=== PATIENT | female | born 2000 ===

== ENCOUNTER 2025-02-05 12:38 | Inpatient (IN) | payer MEDICAID ==
[2025-02-05] MEDS ORDERED: Ondansetron 4 MG/2 ML SDV IVPUSH PRN (14:12)
[2025-02-05 14:37] LABS: BASOPHILS ABSOLUTE AUTO 0.0 K/mm3 (0.0-0.2); BASOPHILS PERCENT AUTO 0.2 % (0.0-1.0); EOSINOPHILS ABSOLUTE AUTO 0.0 K/mm3 (0.0-0.4); EOSINOPHILS PERCENT AUTO 0.2 % (0.0-6.0); IMMATURE GRAN ABSOLUTE AUTO 0.06 K/mm3 (0.00-0.05); IMMATURE GRAN PERCENT AUTO 0.6 % (0.0-0.4); LYMPHOCYTES ABSOLUTE AUTO 1.5 K/mm3 (1.0-4.8); LYMPHOCYTES PERCENT AUTO 15.0 % (24.0-44.0); MEAN PLATELET VOLUME 11.4 fl (9.4-12.3); MONOCYTES ABSOLUTE AUTO 0.6 K/mm3 (0.0-0.8); MONOCYTES PERCENT AUTO 5.7 % (0.0-8.0); NEUTROPHILS ABSOLUTE AUTO 7.6 K/mm3 (1.8-7.7); NEUTROPHILS PERCENT AUTO 78.3 % (41.0-71.0); NRBC ABSOLUTE 0.00 (0.00-0.02); NRBC PERCENT 0.0 % (0.0-0.2); PLATELET COUNT,PLT 136 K/mm3 (150-400); RED BLOOD CELL COUNT 4.28 M/mm3 (4.10-5.30); WHITE BLOOD CELL COUNT,WBC 9.68 K/mm3 (3.9-11.3)
[2025-02-05] MEDS ORDERED: ePHEDrine 50 MG/ML SDV IVPUSH PRN (20:08)
[2025-02-05] MEDS ORDERED: diphenhydrAMINE 50 MG/ML SDV IVPUSH PRN (20:08)
[2025-02-05] MEDS ORDERED: Oxytocin/0.9 % Sodium Chloride 30 UNIT/500 ML BAG IV SCH (23:15)
[2025-02-05] MEDS: Nalbuphine 10 MG/1 ML Vial IVPUSH PRN (23:23)
[2025-02-05] MEDS: Lactated Ringers 1,000 ML IV SCH (23:43)
[2025-02-05] MEDS: Oxytocin/0.9 % Sodium Chloride 30 UNIT/500 ML BAG IV SCH (23:44)
[2025-02-06] MEDS: Sodium Chloride 0.9% 10 ML Syringe FLUSH SCH (00:22)
[2025-02-06] MEDS: Bupivacaine/fentaNYL/NS 100 ML Bag EPIDUR PRN (01:20)
[2025-02-06] MEDS ORDERED: Ropivacaine 0.2% PF 2 MG/ML 20 ML SDV ONE (07:00)
[2025-02-06] MEDS ORDERED: Phenylephrine 1% 10 MG/ML SDV ONE (07:00)
[2025-02-06] MEDS ORDERED: ePHEDrine 50 MG/ML SDV ONE (07:00)
[2025-02-06] MEDS: fentaNYL 100 MCG/2 ML SDV ONE (08:29)
[2025-02-06] MEDS: fentaNYL 100 MCG/2 ML SDV EPIDUR PRN (11:45)
[2025-02-06] MEDS ORDERED: Sodium Chloride 0.9% 10 ML Syringe FLUSH PRN (14:00)
[2025-02-06] MEDS ORDERED: Lactated Ringers 1,000 ML IV SCH (14:00)
[2025-02-06] MEDS ORDERED: Lidocaine 2% with EPINEPHrine 1:200,000 20 ML SDV ONE (14:14)
[2025-02-06] MEDS ORDERED: Ondansetron 4 MG/2 ML SDV ONE (14:15)
[2025-02-06] MEDS: Citric Acid/Sodium Citrate Solution 30 ML Cup PO ONE (14:18)
[2025-02-06] MEDS ORDERED: Lactated Ringers 1,000 ML ONE (14:38)
[2025-02-06] MEDS ORDERED: dexmedeTOMIDine HCl 200 MCG/2 ML SDV ONE (14:45)
[2025-02-06] MEDS ORDERED: Dexamethasone 4 MG/ML SDV ONE (14:52)
[2025-02-06] MEDS ORDERED: fentaNYL 100 MCG/2 ML SDV ONE (15:00)
[2025-02-06] MEDS ORDERED: Propofol 200 MG/20 ML SDV ONE (15:01)
[2025-02-06] MEDS ORDERED: Morphine PF 10 MG/10 ML SDV ONE (15:24)
[2025-02-06] MEDS ORDERED: Ondansetron 4 MG/2 ML SDV IVPUSH PRN (15:57)
[2025-02-06] MEDS ORDERED: fentaNYL 100 MCG/2 ML SDV IVPUSH PRN (15:57)
[2025-02-06] MEDS ORDERED: diphenhydrAMINE 50 MG/ML SDV IVPUSH PRN ×2 (15:57→16:15)
[2025-02-06] MEDS ORDERED: Acetaminophen/oxyCODONE 325-5 MG Tab PO PRN (16:15)
[2025-02-06] MEDS ORDERED: ePHEDrine 50 MG/ML SDV IVPUSH PRN (16:15)
[2025-02-06] MEDS ORDERED: Naloxone 0.4 MG/ML SDV IVPUSH PRN (16:15)
[2025-02-06] MEDS: Ketorolac 30 MG/ML SDV IVPUSH SCH (16:44)
[2025-02-06] MEDS ORDERED: Sodium Chloride 0.9% 10 ML Syringe FLUSH SCH (21:00)
[2025-02-07 05:40] LABS: BASOPHILS ABSOLUTE AUTO 0.0 K/mm3 (0.0-0.2); BASOPHILS PERCENT AUTO 0.2 % (0.0-1.0); EOSINOPHILS ABSOLUTE AUTO 0.0 K/mm3 (0.0-0.4); EOSINOPHILS PERCENT AUTO 0.1 % (0.0-6.0); IMMATURE GRAN ABSOLUTE AUTO 0.18 K/mm3 (0.00-0.05); IMMATURE GRAN PERCENT AUTO 0.9 % (0.0-0.4); LYMPHOCYTES ABSOLUTE AUTO 1.4 K/mm3 (1.0-4.8); LYMPHOCYTES PERCENT AUTO 6.9 % (24.0-44.0); MEAN PLATELET VOLUME 11.5 fl (9.4-12.3); MONOCYTES ABSOLUTE AUTO 1.3 K/mm3 (0.0-0.8); MONOCYTES PERCENT AUTO 6.7 % (0.0-8.0); NEUTROPHILS ABSOLUTE AUTO 16.9 K/mm3 (1.8-7.7); NEUTROPHILS PERCENT AUTO 85.2 % (41.0-71.0); NRBC ABSOLUTE 0.00 (0.00-0.02); NRBC PERCENT 0.0 % (0.0-0.2); PLATELET COUNT,PLT 106 K/mm3 (150-400); RED BLOOD CELL COUNT 2.98 M/mm3 (4.10-5.30); WHITE BLOOD CELL COUNT,WBC 19.87 K/mm3 (3.9-11.3)
[2025-02-07] MEDS: Acetaminophen/oxyCODONE 325-5 MG Tab PO PRN (20:08)
== END 2025-02-08 15:45 | disposition home or self-care (01) | DRG 788 ==
LOC: JD.OBCHECK 12:38 → JD.OB 12:39 → JD.OBCHECK 16:21 → OBSVTOIN 02-06 14:58 → JD.OB 02-06 14:59
PROVIDERS: ADMIT Family Medicine; ATTEND Family Medicine
PROC: 3E0R3BZ Introduction of Anesthetic Agent into Spinal Canal, Percutaneous Approach (ICD-10-PCS; principal; 2025-02-06 14:45)
PROC: 10D00Z1 Extraction of Products of Conception, Low, Open Approach (ICD-10-PCS; principal; 2025-02-06 14:45)
DX: O48.0 Post-term pregnancy (principal); O99.344 Other mental disorders complicating childbirth; F41.9 Anxiety disorder, unspecified; F32.A Depression, unspecified; Z3A.40 40 weeks gestation of pregnancy; Z37.0 Single live birth; Z98.890 Other specified postprocedural states; Z79.899 Other long term (current) drug therapy; O62.1 Secondary uterine inertia
CPT/HCPCS: 36415; 51702; 59025; 84112; 85025; 86592; 86850; 86900; 86901; 94762; A9270-GY; J0456; J0665; J0690; J1100; J1885; J2003; J2274; J2300; J2371; J2405; J2704; J2765; J2795; J3010; J3490; J7050; J7120; J7121; J7999